=== PATIENT | female | born 1940 | race Caucasian/White ===

== ENCOUNTER 2020-01-19 17:56 | Emergency (ER) | payer MEDICARE, BC ==
[~2020-01-19] VITALS: Ht 172.7 cm; Wt 2.8 kg
[~2020-01-19 17:56] MED LIST: ASPIRIN EC81 M1 PO; ATORVASTATIN CA10 MG PO; MULTIVITAMINS1 EAC7 PO; SYNTHROID75 MCG PO; VITAMIN B-125000 MCG SL
[2020-01-19] MEDS ORDERED: ROPINIROLE HCL0.5 MG PO (18:07)
[2020-01-19] MEDS ORDERED: ARICEPT10 M1 PO (18:07)
[2020-01-19] MEDS ORDERED: ASPIRIN325 PO (18:07)
[2020-01-19] MEDS ORDERED: LEVO-T100 MCG PO (18:08)
[2020-01-19] MEDS ORDERED: FLUNISOLIDE25 ML NASAL (18:08)
[2020-01-19] MEDS ORDERED: CHILDREN'S ZYRT10 M1 PO (18:08)
[2020-01-19] MEDS ORDERED: SPIRONOLACTONE50 MG PO (18:08)
[2020-01-19] MEDS ORDERED: CELEXA 20 MG TA20 MG PO (18:08)
[2020-01-19] MEDS ORDERED: OMEPRAZOLE 20 M20 M1 PO (18:09)
[2020-01-19] MEDS ORDERED: DERMACINRX5000 UNIT PO (18:09)
[2020-01-19] MEDS ORDERED: SEROQUEL XR 20200 MG PO (18:09)
[2020-01-19] MEDS ORDERED: ONDANSETRON ODT4 MG PO (18:10)
[2020-01-19 18:26] LABS: ABSOLUTE EOSINOPHILS 0.1 thou/uL (0.0-0.7); ABSOLUTE LYMPHOCYTES 1.8 thou/uL (0.8-5.3); ABSOLUTE MONOCYTES 0.5 thou/uL (0.0-1.2); ABSOLUTE NEUTROPHILS 3.1 thou/uL (1.6-8.1); BASOPHILS 0.7 %; EOSINOPHILS 2.6 %; HEMATOCRIT 34.2 % (37.0-47.0); HEMOGLOBIN 11.6 gm/dL (12.0-15.0); MCH 31.3 pg (26.0-34.0); MCHC 33.8 g/dL (28.0-37.0); MCV 92.6 fL (80.0-100.0); MPV 7.7 fl. (7.2-11.1); NUCLEATED RBCS 0 /100WBC; PLATELET COUNT* 179 thou/uL (150-400); POLYS 55.7 %; RBC 3.69 mil/uL (4.20-5.00); RDW-CV 14.5 % (10.5-14.5); WBC 5.5 thou/uL (4.0-11.0)
[2020-01-19 18:33] LABS: CALCIUM 9.4 mg/dL (8.5-10.1); CREATININE 1.4 mg/dL (0.6-1.3); POTASSIUM 3.7 mmol/L (3.5-5.1)
[2020-01-19 18:38] LABS: ALBUMIN 3.2 g/dL (3.4-5.0); TOTAL BILIRUBIN 0.3 mg/dL (<0.1-1.0); TOTAL PROTEIN 7.4 g/dL (6.4-8.2)
[2020-01-19 18:46] LABS: URINE BILIRUBIN NEGATIVE (Negative); URINE BLOOD 2+ (Negative); URINE CLARITY CLEAR; URINE COLOR YELLOW; URINE GLUCOSE-RANDOM NEGATIVE (Negative); URINE KETONES TRACE (Negative); URINE LEUKOCYTES-REFLEX TRACE (Negative); URINE NITRITE-REFLEX NEGATIVE (Negative); URINE PROTEIN NEGATIVE (Negative); URINE UROBILINOGEN 0.2 E.U./dl (0.2-1.0)
[2020-01-19 18:56] LABS: BACTERIA-REFLEX 1-9 Few /HPF (None Seen); SQUAMOUS 0-3 Few /LPF (0-3); URINE RBC 0-2 Rare /HPF (0-2); URINE WBC-REFLEX 0-5 Rare /HPF (0-5)
[2020-01-19 18:57] LABS: AMORPHOUS URATES Many /LPF (None Seen); CASTS None Seen /LPF (None Seen)
[2020-01-19] MEDS ORDERED: KEFLEX500 M1 PO (19:00)
[2020-01-19 19:54] VITALS: BP 152/74
--- NOTE | 2020-01-20 09:35 | EKG ---
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: [facility] : 1940 Requested By: Estrella Perdomo Order Number: [id number] MD: Héctor Patel Measurements Intervals [place] Rate: 156 P: 0 [place]: 63 QRS: 77 QRSD: 185 T: 143 QT: 339 QTc: 546 Interpretive Statements Sinus rhythm Anteroseptal infarct, old, possible Artifact in lead(s) aVR,aVL,V1,V2,V3,V4,V5,V6 and baseline wander in lead(s) V6 No previous ECG available for comparison Recommend repeat EKG Electronically Signed On 01-20-2020 9:35:30 [employer]END[employer] by Héctor Patel [email or web address] <ELECTRONICALLY SIGNED> By: Héctor Patel MD, FACC 01/20/20 0935 01 01 Héctor Patel MD, FACC /EPI
== END 2020-01-19 20:14 | disposition home or self-care (01) ==
LOC: M.ERS 17:56
PROVIDERS: Personal Emergency Response Attendant
DX: R55 Syncope and collapse (principal); I10 Essential (primary) hypertension; E11.9 Type 2 diabetes mellitus without complications; E03.9 Hypothyroidism, unspecified; Z88.2 Allergy status to sulfonamides; Z90.49 Acquired absence of other specified parts of digestive tract; Z90.89 Acquired absence of other organs; Z90.710 Acquired absence of both cervix and uterus; Z88.8 Allergy status to other drugs, medicaments and biological substances